=== PATIENT | female | born 1950 ===

== ENCOUNTER 2022-04-10 15:08 | Outpatient (CLI) | payer MEDICARE ==
--- NOTE | 2022-04-11 10:18 | Ultrasound Report ---
PROCEDURE: Duplex Lwr Ext Arterial Bilat INDICATIONS: ABN PULSES TECHNIQUE: Color and pulse Doppler interrogation was performed of both lower extremity arterial systems, with im age documentation. COMPARISON: None FINDINGS: Right lower extremity: Common femoral artery: 83 cm/sec, with triphasic flow. Deep femoral artery: 69 cm/sec, with biphasic flow. Proximal superficial femoral artery: 89 cm/sec, with biphasic flow. Mid superficial femoral artery: 67 cm/sec, with biphasic flow. Distal superficial femoral artery: 52 cm/sec, with biphasic flow. Popliteal artery: 67 cm/sec, with biphasic flow. Posterior tibial artery: 128 cm/sec, with biphasic flow. Anterior tibial artery/dorsalis pedis: 67 cm/sec, with biphasic and monophasic flow. Calhoun-scale imaging description: Mild diffuse plaque Left lower extremity: Common femoral artery: 51 cm/sec, with biphasic and triphasic flow. Deep femoral artery: 30 cm/sec, with monophasic flow. Proximal superficial femoral artery: 43 cm/sec, with biphasic flow. Mid superficial femoral artery: 53 cm/sec, with monophasic flow. Distal superficial femoral artery: 32 cm/sec, with monophasic flow. Popliteal artery: 46 cm/sec, with monophasic and biphasic flow. Posterior tibial artery: 48 cm/sec, with monophasic flow. Anterior tibial artery/dorsalis pedis: 24 cm/sec, with monophasic and biphasic flow. Calhoun-scale imaging description: Mild diffuse plaque IMPRESSION: 1. No significant right-sided outflow stenosis. 2. Hemodynamically significant stenosis/occlusion within the right anterior tibial artery. 3. Findings suggestive of hemodynamically significant left-sided outflow stenosis. 4. Initial further assessment with MR angiography runoff evaluation is recommended. Reviewed by: Trevin Boykin MD on 04/11/2022 10:17 AM [facility] Approved by: Trevin Boykin MD on 04/11/2022 10:17 AM [facility] Station ID: [id number]
--- NOTE | 2022-04-11 10:19 | Ultrasound Report ---
PROCEDURE: Ankle Brachial Index INDICATIONS: ABN PULSES TECHNIQUE: Ankle-brachial indices were obtained bilaterally and recorded. COMPARISONS: None. FINDINGS: Right ankle brachial index (DEVONTE): 0.9 Left ankle brachial index (DEVONTE): 0.9 Healing potential: Ankle pressures >55 mm Hg in non-diabetics and >80 mm Hg in diabetics are likely to achieve primary h ealing of ischemic foot ulcers. Toe pressures >30 mm Hg are likely to achieve primary healing of ischemic foot ulcers, toe or transme tatarsal amputations. IMPRESSION: Normal ankle-brachial indices bilaterally. Reviewed by: Trevin Boykin MD on 04/11/2022 10:17 AM [facility] Approved by: Trevin Boykin MD on 04/11/2022 10:17 AM PST Station ID: [id number]
== END 2022-04-10 15:09 | disposition home or self-care (01) ==
LOC: DI 15:08
PROVIDERS: ATTEND Physician Assistant
DX: I70.201 Unspecified atherosclerosis of native arteries of extremities, right leg (principal)
CPT/HCPCS: 93922; 93925

== ENCOUNTER 2022-07-12 14:37 | Outpatient (CLI) | payer MEDICARE ==
--- NOTE | 2022-07-12 17:05 | XRAY Report ---
PROCEDURE: Cervical Spine 2 View INDICATIONS: CERVICALGIA TECHNIQUE: 3 view(s) of the cervical spine were acquired. COMPARISON: None. FINDINGS: Bones: No fractures or dislocations to the T1 level. Mild to moderate degenerative change in the cer vical spine most pronounced at C5-C6 and C6-C7. The lateral masses of C1 appear intact on the odontoi d view. No suspicious bony lesions. Soft tissues: No prevertebral soft tissue swelling. IMPRESSION: Moderate degenerative change in the cervical spine. Reviewed by: Willard Flores MD on 07/12/2022 5:04 PM PDT Approved by: Willard Flores MD on 07/12/2022 5:04 PM PDT Station ID: [id number]
== END 2022-07-12 14:38 | disposition home or self-care (01) ==
LOC: DI 14:37
PROVIDERS: ATTEND Physician Assistant
DX: M47.812 Spondylosis without myelopathy or radiculopathy, cervical region (principal)

== ENCOUNTER 2022-07-12 14:41 | Outpatient (CLI) | payer MEDICARE ==
--- NOTE | 2022-07-12 17:04 | XRAY Report ---
PROCEDURE: Chest 2 View X-Ray INDICATIONS: CHEST PAIN TECHNIQUE: 2 views of the chest were acquired. COMPARISON: None. FINDINGS: Surgical changes and devices: Clips in the upper abdomen. Lungs and pleura: No pleural effusions or pneumothorax. Lungs are clear. Mediastinum: Mediastinal contours appear normal. Heart size is normal. Bones and chest wall: No suspicious bony lesions. Overlying soft tissues appear unremarkable. IMPRESSION: No acute cardiopulmonary process. Reviewed by: Willard Flores MD on 07/12/2022 5:03 PM PDT Approved by: Willard Flores MD on 07/12/2022 5:03 PM PDT Station ID: [id number]
== END 2022-07-12 14:42 | disposition home or self-care (01) ==
LOC: DI 14:41
PROVIDERS: ATTEND Physician Assistant
DX: R07.9 Chest pain, unspecified (principal)

== ENCOUNTER 2022-07-12 14:42 | Outpatient (CLI) | payer MEDICARE ==
--- NOTE | 2022-07-12 17:05 | XRAY Report ---
PROCEDURE: Shoulder 3 View RT INDICATIONS: CERVICALGIA TECHNIQUE: 3 views of the shoulder were acquired. COMPARISON: None. FINDINGS: Bones: No fractures or dislocations. Moderate degenerative change at the GHA and AC joints. No susp icious bony lesions. Visualized ribs appear intact. Soft tissues: No suspicious soft tissue calcifications. IMPRESSION: Moderate right shoulder DJD. Reviewed by: Willard Flores MD on 07/12/2022 5:04 PM PDT Approved by: Willard Flores MD on 07/12/2022 5:04 PM PDT Station ID: [id number]
== END 2022-07-12 14:43 | disposition home or self-care (01) ==
LOC: DI 14:42
PROVIDERS: ATTEND Physician Assistant
DX: M19.011 Primary osteoarthritis, right shoulder (principal); M47.812 Spondylosis without myelopathy or radiculopathy, cervical region; R07.9 Chest pain, unspecified